=== PATIENT | female | born 1950 | race Caucasian/White ===

== ENCOUNTER 2020-09-21 10:54 | Emergency (ER) | payer MEDICARE, OTHER ==
[2020-09-21] MEDS ORDERED: Bacitracin/Neomycin/Polymyxin B Oint 0.9 GM U/D Packet TOP ONE (11:15)
[2020-09-21] MEDS ORDERED: Lidocaine 2% with EPINEPHrine 1:100,000 20 ML MDV INJECT ONE (11:15)
[2020-09-21] MEDS ORDERED: Lidocaine 2% with EPINEPHrine 1:100,000 20 ML MDV ONE (11:16)
[2020-09-21] MEDS ORDERED: Bacitracin/Neomycin/Polymyxin B Oint 0.9 GM U/D Packet ONE (11:17)
[2020-09-21] MEDS ORDERED: Diphtheria,Pertussis(Acell),Tetanus Vaccine 0.5 ML Syringe IM ONE (11:21)
--- NOTE | 2020-09-21 11:57 | EDM.PDOC ---
ED HPI GENERAL MEDICAL PROBLEM - General Chief Complaint: Laceration Stated Complaint: chin laceration Time Seen by Provider: 09/21/20 11:05 Source of Information: Reports: Patient History Limitations: Reports: No Limitations - History of Present Illness INITIAL COMMENTS - FREE TEXT/NARRATIVE: She presents to the ED for evaluation of a laceration to her chin. Tripped approximately 4 am this morning striking the chin on the edge of a night stand. No loss of consciousness. No dizziness or light headedness. No visual change. Laceration on the underside of the chin. No other injury. Face/Facial Pain Score (Numeric/FACES): 3 - Related Data Allergies Allergy/AdvReac Type Severity Reaction Status Date / Time No Known Allergies Allergy Verified 09/21/20 11:01 Home Meds: Home Meds atorvaSTATin [Lipitor] 10 mg PO BEDTIME 09/21/20 [History] ED ROS GENERAL - Review of Systems Review Of Systems: See Below Constitutional: Denies: Fever, Chills HEENT: Denies: Rhinitis, Throat Pain, Vision Change Respiratory: Denies: Shortness of Breath, Cough Cardiovascular: Denies: Chest Pain, Palpitations GI/Abdominal: Denies: Abdominal Pain, Nausea, Vomiting Skin: Reports: Other (Laceration chin) ED EXAM, SKIN/RASH Exam: See Below Exam Limited By: No Limitations General Appearance: Alert, WD/WN, No Apparent Distress Eye Exam: Bilateral Eye: EOMI, PERRL Ears: Normal External Exam, Normal Canal, Normal TMs Nose: Normal Inspection, Normal Mucosa, No Blood. No: Clear Rhinorrhea Throat/Mouth: Normal Inspection, Normal Lips, Normal Oropharynx Head: Other (4 cm angled laceration geri extends into the deep subcutaneous tissue on the underside of the left chin. No surrounding tenderness or swelling.) Course - Vital Signs Text/Narrative:: Wound is infiltrated with 8 cc 2 percent lidocaine with epinephrine. The wound is irrigated with sterile water, cleansed with betadine and draped with sterile towels. Deep wound is closed with 2 deep sutures using 4-0 chromic. Supe rficial layer is closed with 11 simple interrupted sutures using a 5-0 ethilon. Antibiotic ointment and dressing were applied. Given routine wound care instructions. No complications. Last Recorded V/S: Last Vital Signs Temp 36.2 C 09/21/20 11:02 Pulse 65 03/27/21 11:02 Resp 18 09/21/20 11:02 BP 142/75 H 09/21/20 11:02 Pulse Ox 100 09/21/20 11:02 - Orders/Labs/Meds Orders: Active Orders 24 hr Category Date Time Status Vaccines to be Administered [RC] PER UNIT ROUTINE Care 09/21/20 11:22 Active Meds: Medications Discontinued Medications Generic Name Dose Route Start Last Admin Trade Name Arely PRN Reason Stop Dose Admin Diphtheria/Tetanus/Acell Pertussis 0.5 ml 09/21/20 11:21 09/21/20 11:51 Diphtheria,Pertussis(Acell),Tetanus Vaccine 0.5 Ml Syringe IM 09/21/20 11:22 0.5 ml .ONCE ONE Administration Lidocaine/Epinephrine Confirm 09/21/20 11:16 09/21/20 11:21 Lidocaine 2% With Epinephrine 1:100,000 20 Ml Mdv Administered 09/21/20 11:17 Not Given Dose 20 ml .ROUTE .STK-MED ONE Lidocaine/Epinephrine 20 ml 09/21/20 11:15 09/21/20 11:48 Lidocaine 2% With Epinephrine 1:100,000 20 Ml Mdv INJECT 09/21/20 11:16 20 ml ONETIME ONE Administration Neomycin/Polymyxin/Bacitracin Confirm 09/21/20 11:17 09/21/20 11:21 Bacitracin/Neomycin/Polymyxin B Oint 0.9 Gm U/D Packet Administered 09/21/20 11:18 Not Given Dose 1 each .ROUTE .STK-MED ONE Neomycin/Polymyxin/Bacitracin 1 each 09/21/20 11:15 09/21/20 11:48 Bacitracin/Neomycin/Polymyxin B Oint 0.9 Gm U/D Packet TOP 09/21/20 11:16 1 each ONETIME ONE Administration Departure - Departure Time of Disposition: 11:54 Disposition: Home, Self-Care 01 Condition: Good Clinical Impression: Laceration of chin without complication - Discharge Information *PRESCRIPTION DRUG MONITORING PROGRAM REVIEWED*: Not Applicable *COPY OF PRESCRIPTION DRUG MONITORING REPORT IN PATIENT RAUL: Not Applicable Instructions: Laceration Care, Adult, Sutures, John, or Adhesive Wound Closure, [id number], VIS, Tetanus, Diphtheria, and Pertussis (Tdap) - CDC (09/27/2019) Referrals: Jessica Cordoba PA [Primary Care Provider] - Forms: ED Department Discharge Additional Instructions: Keep dressing on for 24 hours. Monitor for signs of infection (spreading redness, drainage from the wound, feve r). Follow up if this occurs. Suture removal in clinic in 6-9 days. Sepsis Event Note (ED) - Evaluation Sepsis Screening Result: No Definite Risk - Focused Exam Vital Signs: Vital Signs Temp Pulse Resp BP Pulse Ox 09/21/20 11:02 36.2 C 65 18 142/75 H 100 - Problem List & Annotations (1) Laceration of chin without complication SNOMED Code(s): 32620538462731639, 14716881592792285 Code(s): S01.81XA - LACERATION W/O FOREIGN BODY OF OTH PART OF HEAD, INIT ENCNTR Status: Acute - My Orders Last 24 Hours: My Active Orders 09/21/20 11:22 Vaccines to be Administered [RC] PER UNIT ROUTINE - Assessment/Plan Last 24 Hours: My Active Orders 09/21/20 11:22 Vaccines to be Administered [RC] PER UNIT ROUTINE Plan: Keep dressing on for 24 hours. Monitor for signs of infection (spreading redness, drainage from the wound, fever). Follow up if this occurs. Suture removal in clinic in 6-9 days.
== END 2020-09-21 12:10 | disposition home or self-care (01) ==
LOC: LL.ED 10:54
DX: S01.81XA Laceration without foreign body of other part of head, initial encounter (principal); Z23 Encounter for immunization; W22.8XXA Striking against or struck by other objects, initial encounter
CPT/HCPCS: 12052; 90471; 90715; 99282; 99282-25

== ENCOUNTER → 2022-04-05 | Emergency (ER) | payer MEDICARE, OTHER ==
[~2022-04-05] MED LIST: predniSONE 20 MG Tab ONE
[2022-04-28 12:12] LABS: ANION GAP 11.3 meq/L (7-15); CHLORIDE,CL 103 mmol/L (98-107); ESTIMATED GFR 84 mL/min (>=60); SODIUM,NA 141 mmol/L (136-145)
== END ==
LOC: LL.ED 17:00
DX: M25.561 Pain in right knee (principal)
CPT/HCPCS: 36415; 73562-RT; 80053; 85025; 99283; J7512

== ENCOUNTER 2023-07-31 00:29 | Emergency (ER) | payer MEDICARE, OTHER ==
[2023-07-31] MEDS ORDERED: Lidocaine 2% with EPINEPHrine 1:100,000 20 ML MDV INJECT ONE (01:45)
[2023-07-31] MEDS ORDERED: Diphtheria,Pertussis(Acell),Tetanus Vaccine 0.5 ML Syringe IM ONE (02:27)
[2023-07-31] MEDS ORDERED: Bacitracin Oint 1 GM U/D Packet TOP ONE (02:33)
== END 2023-07-31 03:26 | disposition home or self-care (01) ==
LOC: LL.ED 00:29
DX: S01.81XA Laceration without foreign body of other part of head, initial encounter (principal); E78.00 Pure hypercholesterolemia, unspecified; Z23 Encounter for immunization; Z79.899 Other long term (current) drug therapy; W10.9XXA Fall (on) (from) unspecified stairs and steps, initial encounter
CPT/HCPCS: 12013; 70450; 90471; 90715; 99283-25; J3490